=== PATIENT | female | born 1940 | race Caucasian/White ===

== ENCOUNTER 2016-10-10 14:20 | Inpatient (IN) | payer MEDICARE, OTHER ==
[2016-10-10] MEDS ORDERED: Haloperidol Lactate 5 MG/ML SDV IM PRN (17:08)
[2016-10-10] MEDS ORDERED: Lactated Ringers 500 ML IV ONE (17:15)
[2016-10-10] MEDS ORDERED: ABREVA TOP PRN (17:16)
--- NOTE | 2016-10-10 17:35 | EDM.PDOC ---
ED HPI GENERAL MEDICAL PROBLEM - General Chief Complaint: General Stated Complaint: needs transfer to [facility] Time Seen by Provider: 10/10/16 14:45 Source of Information: Reports: Family, Senior Living Records History Limitations: Reports: Altered Mental Status (severe dementia) - History of Present Illness INITIAL COMMENTS - FREE TEXT/NARRATIVE: Rupert is a 76 yo female who presents to the ER via [facility]. She is a resident at the [facility]. She was recently hospitalized at [facility] on the psychiatric floor from 09/28 - 10/07. She has severe dementia with aggressive behaviors. She had medication dose changes and upon discharge was doing well. assisted staff admit she has became aggressive again and hitting staff, resisting care and pulling other residents hair. assisted does not feel she can be taken care of at there facility. - Related Data Allergies Allergy/AdvReac Type Severity Reaction Status Date / Time Sulfa (Sulfonamide Allergy Cannot Verified 10/10/16 14:30 Antibiotics) Remember Home Meds: Home Meds Brinzolamide/Brimonidine Tart [Simbrinza 1%-0.2% Eye Drops] 1 drop EYEBOTH BID 02/26/16 [History] ClonazePAM [KlonoPIN] 0.5 mg PO BID PRN 02/26/16 [History] Latanoprost [Xalatan 0.005% Oph Soln] 1 drop EYEBOTH BEDTIME 02/26/16 [History ] Docosanol [Abreva 10%] 1 applic TOP Q4H PRN 10/10/16 [History] Lisinopril [Lisinopril] 20 mg PO DAILY 10/10/16 [History] Magnesium 500 mg PO DAILY 10/10/16 [History] Metoprolol Succinate [Metoprolol Succinate] 50 mg PO DAILY 10/10/16 [History] Naproxen 1,000 mg PO BID 10/10/16 [History] Omeprazole [Omeprazole] 20 mg PO DAILY 10/10/16 [History] PARoxetine HCl [Paxil] 10 mg PO DAILY 10/10/16 [History] PEG 400/Hypromellose/Glycerin [Artificial Tears Drops] 1 drop EYEBOTH BID [History] QUEtiapine Fumarate [Seroquel] 50 mg PO DAILY 10/10/16 [History] QUEtiapine [SEROquel] 25 mg PO DAILY 10/10/16 [History] QUEtiapine [SEROquel] 75 mg PO BEDTIME 10/10/16 [History] clonazePAM [Clonazepam] 0.25 mg PO BID 10/10/16 [History] Past Medical History HEENT History: Reports: Glaucoma Cardiovascular History: Reports: Hypertension Gastrointestinal History: Reports: Gastritis, GERD Neurological History: Reports: Alzheimers Disease Psychiatric History: Reports: Aggressive/Hostile Behaviors, Alzheimers Disease , Dementia - Past Surgical History GI Surgical History: Reports: EGD Social & Family History - Tobacco Use Smoking Status *Q: Never Smoker ED ROS GENERAL - Review of Systems Review Of Systems: Unable To Obtain ED EXAM, GENERAL - Physical Exam Exam: See Below Exam Limited By: No Limitations General Appearance: Alert, No Apparent Distress Ears: Normal External Exam, Normal Canal, Normal TMs Nose: Normal Inspection, No Blood Throat/Mouth: Normal Inspection, Normal Oropharynx, Normal Voice, No Airway Compromise Head: Atraumatic, Normocephalic Neck: Normal Inspection, Supple, Non-Tender Respiratory/Chest: No Respiratory Distress, Lungs Clear, No Accessory Muscle Use Cardiovascular: Regular Rate, Rhythm, No Murmur Extremities: Normal Inspection, No Pedal Edema, Normal Capillary Refill Neurological: Alert, No Motor/Sensory Deficits, Confused Psychiatric: Anxious. No: Depressed Mood, Flat Affect, Tearful Skin Exam: Warm, Dry, Intact, No Rash, Other (ashen) Course - Vital Signs Last Recorded V/S: Last Vital Signs Temp 97.0 F 10/10/16 16:23 Pulse 63 10/10/16 16:23 Resp 20 10/10/16 16:23 BP 114/58 L 10/10/16 14:25 Pulse Ox 99 10/10/16 16:23 - Orders/Labs/Meds Orders: Active Orders 24 hr Category Date Time Status CULTURE URINE [RM] Stat Lab 10/10/16 15:26 Received Medication Orders Acetaminophen (Tylenol) 650 mg PO Q4H PRN PRN Reason: Pain (Mild 1-3)/fever Artificial Tears (Liquitears 1.4% Ophth Soln) 0 ml EYEBOTH BID [facility] Ceftriaxone Sodium (Rocephin) 1 gm IVPUSH Q24H [facility] Docusate Sodium (Colace) 100 mg PO BID PRN PRN Reason: Constipation Enoxaparin Sodium (Lovenox) 40 mg SUBCUT Q24H [facility] Haloperidol Lactate (Haldol) 5 mg IM Q8H PRN PRN Reason: Agitation Lactated Ringer's (Ringers, Lactated) 500 mls @ 999 mls/hr IV ONETIME ONE Stop: 10/10/16 17:45 Lactated Ringer's (Ringers, Lactated) 1,000 mls @ 100 mls/hr IV ASDIRECTED [facility] Latanoprost (Xalatan 0.005% Ophth Soln) 0 ml EYEBOTH BEDTIME [facility] Lisinopril (Prinivil) 20 mg PO DAILY [facility] Magnesium Oxide (Magnesium Oxide) 500 mg PO DAILY [facility] Metoprolol Succinate (Toprol Xl) 50 mg PO DAILY [facility] Naproxen (Naprosyn) 1,000 mg PO BID [facility] Non-Formulary Medication (Brinzolamide/Brimonidine Tart [Simbrinza 1%-0.2% Eye Drops]) 1 drop EYEBOTH BID [facility] Ptom [Abreva 10%] 1 (Applic)) 1 applic TOP Q4H PRN PRN Reason: rash Non-Formulary Medication (Quetiapine Fumarate) 50 mg PO DAILY [facility] Pantoprazole Sodium (Protonix) 40 mg PO 0700 [facility] Paroxetine HCl (Paxil) 10 mg PO DAILY [facility] Quetiapine Fumarate (Seroquel) 25 mg PO DAILY [facility] Quetiapine Fumarate (Seroquel) 75 mg PO BEDTIME [facility] Labs: Laboratory Tests 10/10/16 10/10/16 10/10/16 Range/Units 15:01 15:01 15:26 WBC 10.2 H (5.0-10.0) 10^3/uL RBC 3.75 L (4.00-5.50) 10^6/uL Hgb 11.5 L (12.0-16.0) g/dL Hct 35.1 L (37.0-47.0) % MCV 93.6 (82.0-94.0) fL MCH 30.7 (27.0-32.0) pg MCHC 32.8 L (33.0-38.0) g/dL RDW Coeff of Denise 12.5 (11.0-15.0) % Plt Count 238 (150-400) 10^3/uL Neut % (Auto) 71.8 (35-85) % Lymph % (Auto) 11.8 (10-55) % [place] % (Auto) 9.0 (0-16) % Eos % (Auto) 7.1 H (0-5) % Baso % (Auto) 0.3 (0-3) % Neut # (Auto) 7.33 H (1.80-7.00) 10^3/uL Lymph # (Auto) 1.20 (1.00-4.80) 10^3/uL [place] # (Auto) 0.92 H (0.00-0.80) 10^3/uL Eos # (Auto) 0.73 H (0.00-0.45) 10^3/uL Baso # (Auto) 0.03 10^3/uL Sodium 141 (136-145) mEq/L Potassium 4.1 (3.5-5.0) mEq/L Chloride 105 (98-106) mEq/L Carbon Dioxide 25 (21-32) mmol/L BUN 42 H D (7-18) mg/dL Creatinine 1.4 H (0.6-1.0) mg/dL Est Cr Clr Drug Dosing 35.73 mL/min Estimated GFR (MDRD) 37 L (>=60) mL/min Glucose 112 H (75-99) mg/dL Calcium 8.6 (8.4-10.1) mg/dL Magnesium 1.5 L (1.8-2.4) mg/dL Total Bilirubin 0.7 (0.0-1.0) mg/dL AST 17 (15-37) U/L ALT 11 L (12-78) U/L Alkaline Phosphatase 91 (46-116) U/L Total Protein 6.7 (6.4-8.2) g/dL Albumin 3.4 (3.4-5.0) g/dL Urine Color Yellow (YELLOW) Urine Appearance Slightly cloudy (CLEAR) Urine pH 5.0 (4.5-8.0) Ur Specific [place] 1.021 H (1.003-1.020) Urine Protein Negative (NEGATIVE) mg/dL Urine Glucose (UA) Negative (NEGATIVE) mg/dL Urine Ketones Negative (NEGATIVE) mg/dL Urine Occult Blood Negative (NEGATIVE) Urine Nitrite Negative (NEGATIVE) Urine Bilirubin Negative (NEGATIVE) Urine Urobilinogen 1.0 (0.2-1.0) EU/dL Ur Leukocyte Esterase Small H (NEGATIVE) Urine RBC Not seen (0-5) /HPF Urine WBC 5-10 H (0-5) /HPF Urine WBC Clumps Occasional H (NOT SEEN) /HPF Ur Squamous Epith Cells Few H (NOT SEEN) /HPF Urine Bacteria Occasional H (NOT SEEN) /HPF Urine Opiates Screen (NEGATIVE) Ur Oxycodone Screen (NEGATIVE) Urine Methadone Screen (NEGATIVE) Ur Barbiturates Screen (NEGATIVE) U Tricyclic Antidepress (NEGATIVE) Ur Phencyclidine Scrn (NEGATIVE) Ur Amphetamine Screen (NEGATIVE) U Methamphetamines Scrn (NEGATIVE) Urine MDMA Screen (NEGATIVE) U Benzodiazepines Scrn (NEGATIVE) Urine Cocaine Screen (NEGATIVE) U Marijuana (THC) Screen (NEGATIVE) 10/10/16 Range/Units 15:26 WBC (5.0-10.0) 10^3/uL RBC (4.00-5.50) 10^6/uL Hgb (12.0-16.0) g/dL Hct (37.0-47.0) % MCV (82.0-94.0) fL MCH (27.0-32.0) pg MCHC (33.0-38.0) g/dL RDW Coeff of Denise (11.0-15.0) % Plt Count (150-400) 10^3/uL Neut % (Auto) (35-85) % Lymph % (Auto) (10-55) % [place] % (Auto) (0-16) % Eos % (Auto) (0-5) % Baso % (Auto) (0-3) % Neut # (Auto) (1.80-7.00) 10^3/uL Lymph # (Auto) (1.00-4.80) 10^3/uL [place] # (Auto) (0.00-0.80) 10^3/uL Eos # (Auto) (0.00-0.45) 10^3/uL Baso # (Auto) 10^3/uL Sodium (136-145) mEq/L Potassium (3.5-5.0) mEq/L Chloride (98-106) mEq/L Carbon Dioxide (21-32) mmol/L BUN (7-18) mg/dL Creatinine (0.6-1.0) mg/dL Est Cr Clr Drug Dosing mL/min Estimated GFR (MDRD) (>=60) mL/min Glucose (75-99) mg/dL Calcium (8.4-10.1) mg/dL Magnesium (1.8-2.4) mg/dL Total Bilirubin (0.0-1.0) mg/dL AST (15-37) U/L ALT (12-78) U/L Alkaline Phosphatase (46-116) U/L Total Protein (6.4-8.2) g/dL Albumin (3.4-5.0) g/dL Urine Color (YELLOW) Urine Appearance (CLEAR) Urine pH (4.5-8.0) Ur Specific [place] (1.003-1.020) Urine Protein (NEGATIVE) mg/dL Urine Glucose (UA) (NEGATIVE) mg/dL Urine Ketones (NEGATIVE) mg/dL Urine Occult Blood (NEGATIVE) Urine Nitrite (NEGATIVE) Urine Bilirubin (NEGATIVE) Urine Urobilinogen (0.2-1.0) EU/dL Ur Leukocyte Esterase (NEGATIVE) Urine RBC (0-5) /HPF Urine WBC (0-5) /HPF Urine WBC Clumps (NOT SEEN) /HPF Ur Squamous Epith Cells (NOT SEEN) /HPF Urine Bacteria (NOT SEEN) /HPF Urine Opiates Screen Negative (NEGATIVE) Ur Oxycodone Screen Negative (NEGATIVE) Urine Methadone Screen Negative (NEGATIVE) Ur Barbiturates Screen Negative (NEGATIVE) U Tricyclic Antidepress Negative (NEGATIVE) Ur Phencyclidine Scrn Negative (NEGATIVE) Ur Amphetamine Screen Negative (NEGATIVE) U Methamphetamines Scrn Negative (NEGATIVE) Urine MDMA Screen Negative (NEGATIVE) U Benzodiazepines Scrn Negative (NEGATIVE) Urine Cocaine Screen Negative (NEGATIVE) U Marijuana (THC) Screen Positive H (NEGATIVE) Meds: Medications Generic Name Dose Route Start Last Admin Trade Name Freq PRN Reason Stop Dose Admin Acetaminophen 650 mg 10/10/16 17:08 Tylenol PO Q4H PRN Pain (Mild 1-3)/fever Artificial Tears 0 ml 10/10/16 20:00 Liquitears 1.4% Ophth Soln EYEBOTH BID [facility] Ceftriaxone Sodium 1 gm 10/10/16 17:00 Rocephin IVPUSH Q24H [facility] Docusate Sodium 100 mg 10/10/16 17:08 Colace PO BID PRN Constipation Enoxaparin Sodium 40 mg 10/10/16 20:00 Lovenox SUBCUT Q24H [facility] Haloperidol Lactate 5 mg 10/10/16 17:08 Haldol IM Q8H PRN Agitation Lactated Ringer's 500 mls @ 999 mls/hr 10/10/16 17:15 Ringers, Lactated IV 10/10/16 17:45 ONETIME ONE Lactated Ringer's 1,000 mls @ 100 mls/hr 10/10/16 18:15 Ringers, Lactated IV ASDIRECTED [facility] Latanoprost 0 ml 10/10/16 20:00 Xalatan 0.005% Ophth Soln EYEBOTH BEDTIME [facility] Lisinopril 20 mg 10/11/16 08:00 Prinivil PO DAILY [facility] Magnesium Oxide 500 mg 10/11/16 08:00 Magnesium Oxide PO DAILY [facility] Metoprolol Succinate 50 mg 10/11/16 08:00 Toprol Xl PO DAILY [facility] Naproxen 1,000 mg 10/10/16 20:00 Naprosyn PO BID [facility] Non-Formulary Medication 1 drop 10/10/16 20:00 Brinzolamide/Brimonidine Tart [Simbrinza 1%-0.2% Eye Drops] EYEBOTH BID [facility] Ptom [Abreva 10%] 1 1 applic 10/10/16 17:16 Applic) TOP Q4H PRN rash Non-Formulary Medication 50 mg 10/11/16 08:00 Quetiapine Fumarate PO DAILY [facility] Pantoprazole Sodium 40 mg 10/11/16 07:00 Protonix PO 0700 [facility] Paroxetine HCl 10 mg 10/11/16 08:00 Paxil PO DAILY [facility] Quetiapine Fumarate 25 mg 10/11/16 08:00 Seroquel PO DAILY [facility] Quetiapine Fumarate 75 mg 10/10/16 20:00 Seroquel PO BEDTIME [facility] Departure - Departure Time of Disposition: 17:38 Disposition: Admitted As Inpatient 66 Clinical Impression: Dementia with aggressive behavior UTI (urinary tract infection) Qualifiers: Urinary tract infection type: site unspecified Hematuria presence: without hematuria Qualified Code(s): N39.0 - Urinary tract infection, site not specified - Discharge Information - Problem List & Annotations (1) Dementia with aggressive behavior SNOMED Code(s): 24154421, 96097921, 722780011 Code(s): F03.91 - UNSPECIFIED DEMENTIA WITH BEHAVIORAL DISTURBANCE Status: Acute Current Visit: Yes (2) UTI (urinary tract infection) SNOMED Code(s): 28192131 Code(s): N39.0 - URINARY TRACT INFECTION, SITE NOT SPECIFIED Status: Acute Current Visit: Yes Qualifiers: Urinary tract infection type: site unspecified Hematuria presence: without hematuria Qualified Code(s): N39.0 - Urinary tract infection, site not specified - Problem List Review Problem List Initiated/Reviewed/Updated: Yes - My Orders Last 24 Hours: My Active Orders 10/10/16 15:26 CULTURE URINE [RM] Stat - Assessment/Plan Admission H&P: Please use this note as an admission H&P Last 24 Hours: My Active Orders 10/10/16 15:26 CULTURE URINE [RM] Stat Plan: Laboratory work showed UTI which could be playing a factor to increase in aggressive behaviors. Will admit to Dr. Prescott's services under acute care. IV Rocephin initiated. Will give Haldol 5mg every 8 hours as needed for agitation and aggression. Discussed findings with family and they agree with admission at this time. She has had no aggressive behaviors while in the ER.
[2016-10-10] MEDS ORDERED: Lactated Ringers 1,000 ML IV SCH (18:15)
[2016-10-10] MEDS: cefTRIAXone 1 GM Vial IVPUSH SCH (18:42)
[2016-10-10] MEDS: Enoxaparin 40 MG/0.4 ML Syringe SUBCUT SCH (19:25)
[2016-10-10] MEDS: Docusate Sodium 100 MG Cap PO PRN (19:26)
[2016-10-10] MEDS: QUEtiapine 25 MG Tab PO SCH (19:26)
[2016-10-10] MEDS: Acetaminophen 325 MG Tab PO PRN (19:26)
[2016-10-10] MEDS: Naproxen 500 MG Tab PO SCH (19:26)
[2016-10-10] MEDS: Latanoprost 0.005% Ophth Soln 2.5 ML Bottle EYEBOTH SCH (19:34)
[2016-10-10] MEDS: Polyvinyl Alcohol 1.4% Ophth Soln 15 ML Bottle EYEBOTH SCH (19:43)
[2016-10-10] MEDS: Brimonidine 0.2% Ophth Soln 5 ML Bottle EYEBOTH SCH (19:43)
[2016-10-11] MEDS: Pantoprazole 40 MG Tab.CR PO SCH (06:32)
[2016-10-11] MEDS: Metoprolol Succinate 25 MG Tab.ER PO SCH (07:16)
[2016-10-11] MEDS: Naproxen 500 MG Tab PO SCH ×2 (07:16→19:47)
[2016-10-11] MEDS: QUEtiapine 100 MG Tab PO SCH (07:17)
[2016-10-11] MEDS: Lisinopril 20 MG Tab PO SCH (07:17)
[2016-10-11] MEDS: PARoxetine 20 MG Tab PO SCH (07:17)
[2016-10-11] MEDS: Brimonidine 0.2% Ophth Soln 5 ML Bottle EYEBOTH SCH ×2 (07:23→19:51)
[2016-10-11] MEDS: Polyvinyl Alcohol 1.4% Ophth Soln 15 ML Bottle EYEBOTH SCH ×2 (07:23→19:51)
--- NOTE | 2016-10-11 08:48 | PN ---
DATE: 10/11/2016 S: Rupert is a 76-year-old female who was seen in the emergency room yesterday and admitted to the hospital secondary to UTI. She is a resident at the [facility]; however, they declined to continue to take care of her secondary to aggressive behaviors with worsening dementia. She had been hitting staff and also pulling hair on other residents. They did not want her and sent her to another facility. She had been recently discharged from [facility] secondary to the above-mentioned behaviors. She was discharged on the . They had done some changes to her current medications. Yesterday, the custodial did try sending her to other psychiatric facilities; however, they would not without sending her to the emergency room first for medical clearance. It was noted that she did have a urinary tract infection, which we did elect to admit her to our hospital for IV antibiotics and some IV fluids. O: VITAL SIGNS: Blood pressure 121/56, O2 is 99% on room air, respiratory rate 18, pulse 67, with a temperature 96.7. GENERAL: Rupert is sitting comfortably in her bed this morning. She has had no aggressive behaviors at all with the staff. She is quite forgetful secondary to severe dementia. She does not appear to be in any distress. HEENT: Grossly unremarkable. LUNGS: Clear to auscultation. I do not hear any adventitious sounds. CARDIAC: Regular rate and rhythm. ABDOMEN: Soft. Bowel sounds are present and normoactive. No organomegaly, no guarding, and no rigidity is noted. EXTREMITIES: Scant pedal edema is noted bilaterally. ASSESSMENT: 1. LIKELY URINARY TRACT INFECTION. 2. ADVANCING DEMENTIA WITH AGGRESSIVE BEHAVIOR. P: We will stop her IV fluids at this point in time. We will continue with the Rocephin until we do get back culture reports in regard to urinary tract infection. We will continue to watch her. She has not showed any signs of any aggressive behaviors. We do have Haldol orders secondary to this just in case. Otherwise, we will just monitor her closely. MARCELA/NAS /[id number]
[2016-10-11] MEDS: QUEtiapine 25 MG Tab PO SCH ×2 (12:08→19:47)
[2016-10-11] MEDS: cefTRIAXone 1 GM Vial IVPUSH SCH (16:29)
[2016-10-11] MEDS: Acetaminophen 325 MG Tab PO PRN (19:46)
[2016-10-11] MEDS: Enoxaparin 40 MG/0.4 ML Syringe SUBCUT SCH (19:46)
[2016-10-11] MEDS: Docusate Sodium 100 MG Cap PO PRN (19:47)
[2016-10-11] MEDS: Latanoprost 0.005% Ophth Soln 2.5 ML Bottle EYEBOTH SCH (19:51)
[2016-10-12] MEDS: Pantoprazole 40 MG Tab.CR PO SCH (06:14)
[2016-10-12] MEDS: Naproxen 500 MG Tab PO SCH ×2 (07:12→19:33)
[2016-10-12] MEDS: PARoxetine 20 MG Tab PO SCH (07:12)
[2016-10-12] MEDS: QUEtiapine 100 MG Tab PO SCH (07:13)
[2016-10-12] MEDS: Lisinopril 20 MG Tab PO SCH (07:13)
[2016-10-12] MEDS: Metoprolol Succinate 25 MG Tab.ER PO SCH (07:14)
[2016-10-12] MEDS: Polyvinyl Alcohol 1.4% Ophth Soln 15 ML Bottle EYEBOTH SCH ×2 (07:15→19:37)
[2016-10-12] MEDS: Brimonidine 0.2% Ophth Soln 5 ML Bottle EYEBOTH SCH ×2 (07:16→19:37)
[2016-10-12] MEDS: QUEtiapine 25 MG Tab PO SCH ×2 (12:15→19:33)
--- NOTE | 2016-10-12 12:19 | PCM.PN ---
- General Info Date of Service: 10/12/16 Admission Dx/Problem (Free Text): UTI, confusion Functional Status: Reports: pain controlled - Review of Systems General: Reports: No Symptoms HEENT: Reports: no symptoms Pulmonary: Reports: no symptoms Cardiovascular: Reports: No Symptoms Gastrointestinal: Reports: No symptoms Genitourinary: Reports: no symptoms Musculoskeletal: Reports: no symptoms Skin: Reports: no symptoms Neurological: Reports: Confusion Psychiatric: Reports: confusion Systems Review Comment:: C&S growing gram neg and gram pos. Will start Cipro in addition to Rocephen. Patient sitting up in room talking with family member. Pleasantly confused. is ambulating regularly in the halls. VS stable, no distress noted. Will continue to monitor. - Patient Data Vitals - most recent: Last Vital Signs Temp 97.3 F 10/12/16 11:47 Pulse 74 10/12/16 11:47 Resp 18 10/12/16 11:47 BP 115/62 10/12/16 11:47 Pulse Ox 96 10/12/16 11:47 Weight - most recent: 169 lb I&O - last 24 hours: Intake & Output 10/11/16 10/12/16 10/12/16 22:59 06:59 14:59 Intake Total 580 450 660 Output Total 750 600 200 Balance -170 -150 460 Lab Results last 24 hrs: Laboratory Results - last 24 hr 10/12/16 10/12/16 Range/Units 07:15 07:15 WBC 7.2 (5.0-10.0) 10^3/uL RBC 3.65 L (4.00-5.50) 10^6/uL Hgb 11.1 L (12.0-16.0) g/dL Hct 34.6 L (37.0-47.0) % MCV 94.8 H (82.0-94.0) fL MCH 30.4 (27.0-32.0) pg MCHC 32.1 L (33.0-38.0) g/dL RDW Coeff of Denise 12.6 (11.0-15.0) % Plt Count 211 (150-400) 10^3/uL Neut % (Auto) 64.1 (35-85) % Lymph % (Auto) 18.4 (10-55) % [place] % (Auto) 8.0 (0-16) % Eos % (Auto) 9.1 H (0-5) % Baso % (Auto) 0.4 (0-3) % Neut # (Auto) 4.63 (1.80-7.00) 10^3/uL Lymph # (Auto) 1.33 (1.00-4.80) 10^3/uL [place] # (Auto) 0.58 (0.00-0.80) 10^3/uL Eos # (Auto) 0.66 H (0.00-0.45) 10^3/uL Baso # (Auto) 0.03 10^3/uL C-Reactive Protein 0.8 (0.2-0.8) mg/dL Med Orders - Current: Current Medications Acetaminophen (Tylenol) 650 mg PO Q4H PRN PRN Reason: Pain (Mild 1-3)/fever Last Admin: 10/11/16 19:46 Dose: 650 mg Artificial Tears (Liquitears 1.4% Ophth Soln) 0 ml EYEBOTH BID [facility] Last Admin: 10/12/16 07:15 Dose: 1 drop Brimonidine Tartrate (Alphagan 0.2% Ophth Soln) 0 ml EYEBOTH BID [facility] Last Admin: 10/12/16 07:16 Dose: 1 drop Ceftriaxone Sodium (Rocephin) 1 gm IVPUSH Q24H [facility] Last Admin: 10/11/16 16:29 Dose: 1 gm Ciprofloxacin (Ciprofloxacin Hcl) 500 mg PO BID [facility] Stop: 10/19/16 21:00 Docusate Sodium (Colace) 100 mg PO BID PRN PRN Reason: Constipation Last Admin: 10/11/16 19:47 Dose: 100 mg Enoxaparin Sodium (Lovenox) 40 mg SUBCUT Q24H [facility] Last Admin: 10/11/16 19:46 Dose: 40 mg Haloperidol Lactate (Haldol) 5 mg IM Q8H PRN PRN Reason: Agitation Last Admin: 10/10/16 19:22 Dose: 5 mg Latanoprost (Xalatan 0.005% Ophth Soln) 0 ml EYEBOTH BEDTIME [facility] Last Admin: 10/11/16 19:51 Dose: 1 drop Lisinopril (Prinivil) 20 mg PO DAILY [facility] Last Admin: 10/12/16 07:13 Dose: 20 mg Magnesium Oxide (Magnesium Oxide) 500 mg PO DAILY [facility] Last Admin: 10/12/16 07:07 Dose: 500 mg Metoprolol Succinate (Toprol Xl) 50 mg PO DAILY [facility] Last Admin: 10/12/16 07:14 Dose: 50 mg Naproxen (Naprosyn) 1,000 mg PO BID [facility] Last Admin: 10/12/16 07:12 Dose: 1,000 mg Ptom [Abreva 10%] 1 (Applic)) 1 applic TOP Q4H PRN PRN Reason: rash Pantoprazole Sodium (Protonix) 40 mg PO 0700 [facility] Last Admin: 10/12/16 06:14 Dose: 40 mg Paroxetine HCl (Paxil) 10 mg PO DAILY [facility] Last Admin: 10/12/16 07:12 Dose: 10 mg Quetiapine Fumarate (Seroquel) 50 mg PO DAILY [facility] Last Admin: 10/12/16 07:13 Dose: 50 mg Quetiapine Fumarate (Seroquel) 25 mg PO 1300 [facility] Last Admin: 10/11/16 12:08 Dose: 25 mg Quetiapine Fumarate (Seroquel) 75 mg PO BEDTIME [facility] Last Admin: 10/11/16 19:47 Dose: 75 mg Discontinued Medications Lactated Ringer's (Ringers, Lactated) 500 mls @ 999 mls/hr IV ONETIME ONE Stop: 10/10/16 17:45 Last Admin: 10/10/16 18:43 Dose: 999 mls/hr Lactated Ringer's (Ringers, Lactated) 1,000 mls @ 100 mls/hr IV ASDIRECTED [facility] Last Admin: 10/10/16 22:51 Dose: 100 mls/hr - Problem List Review Problem List Initiated/Reviewed/Updated: Yes - My Orders Last 24 Hours: My Active Orders 10/12/16 20:00 Ciprofloxacin [Ciprofloxacin HCl] 500 mg PO BID
[2016-10-12] MEDS: cefTRIAXone 1 GM Vial IVPUSH SCH (16:04)
[2016-10-12] MEDS: Docusate Sodium 100 MG Cap PO PRN (19:33)
[2016-10-12] MEDS: Acetaminophen 325 MG Tab PO PRN (19:33)
[2016-10-12] MEDS: Ciprofloxacin 500 MG Tab PO SCH (19:33)
[2016-10-12] MEDS: Enoxaparin 40 MG/0.4 ML Syringe SUBCUT SCH (19:33)
[2016-10-12] MEDS: Latanoprost 0.005% Ophth Soln 2.5 ML Bottle EYEBOTH SCH (19:37)
[2016-10-13] MEDS: Pantoprazole 40 MG Tab.CR PO SCH (06:49)
[2016-10-13] MEDS: Brimonidine 0.2% Ophth Soln 5 ML Bottle EYEBOTH SCH (07:28)
[2016-10-13] MEDS: Polyvinyl Alcohol 1.4% Ophth Soln 15 ML Bottle EYEBOTH SCH (07:29)
[2016-10-13] MEDS: Ciprofloxacin 500 MG Tab PO SCH (07:31)
[2016-10-13] MEDS: Naproxen 500 MG Tab PO SCH (07:31)
[2016-10-13] MEDS: PARoxetine 20 MG Tab PO SCH (07:32)
[2016-10-13] MEDS: QUEtiapine 100 MG Tab PO SCH (07:32)
[2016-10-13] MEDS: Lisinopril 20 MG Tab PO SCH (07:35)
[2016-10-13] MEDS: Metoprolol Succinate 25 MG Tab.ER PO SCH (07:35)
[2016-10-13] MEDS: QUEtiapine 25 MG Tab PO SCH (12:20)
--- NOTE | 2016-10-13 13:41 | PCM.DCSUM1 ---
Discharge Summary - Hospital Course Free Text/Narrative:: admitted to the ER for treatment of UTI after she became aggressive at a local detention. She has been treated for her UTI, and will continue on Cipro upon her return to the detention. Although she is pleasantly confused, she has not displayed any signs of aggression since admission. - Discharge Data Discharge Date: 10/13/16 Discharge Disposition: Home, Self-Care 01 Condition: Good - Patient Instructions Diet: Regular Diet as Tolerated Driving: Do Not Drive - Discharge Plan Home Medications: Home Meds Brinzolamide/Brimonidine Tart [Simbrinza 1%-0.2% Eye Drops] 1 drop EYEBOTH BID 02/26/16 [History] ClonazePAM [KlonoPIN] 0.5 mg PO BID PRN 02/26/16 [History] Latanoprost [Xalatan 0.005% Ophth Soln] 1 drop EYEBOTH BEDTIME 02/26/16 [History ] Docosanol [Abreva 10%] 1 applic TOP Q4H PRN 10/10/16 [History] Lisinopril [Lisinopril] 20 mg PO DAILY 10/10/16 [History] Magnesium 500 mg PO DAILY 10/10/16 [History] Metoprolol Succinate [Metoprolol Succinate] 50 mg PO DAILY 10/10/16 [History] Naproxen 1,000 mg PO BID 10/10/16 [History] Omeprazole [Omeprazole] 20 mg PO DAILY 10/10/16 [History] PARoxetine HCl [Paxil] 10 mg PO DAILY 10/10/16 [History] PEG 400/Hypromellose/Glycerin [Artificial Tears Drops] 1 drop EYEBOTH BID [History] QUEtiapine Fumarate [Seroquel] 50 mg PO 0800 10/10/16 [History] QUEtiapine [SEROquel] 25 mg PO 1300 10/10/16 [History] QUEtiapine [SEROquel] 75 mg PO BEDTIME 10/10/16 [History] clonazePAM [Clonazepam] 0.25 mg PO BID 10/10/16 [History] Forms: ED Department Discharge Referrals: Scott Prescott MD [Primary Care Provider] - - Discharge Summary/Plan Comment Discharge Summary/Plan Comment: Will send home on Cipro 500mg po bid x 6 more days. - Patient Data Vitals - Most Recent: Last Vital Signs Temp 97.6 F 10/13/16 08:00 Pulse 70 10/13/16 08:00 Resp 20 10/13/16 08:00 BP 133/81 10/13/16 08:00 Pulse Ox 98 10/13/16 08:00 Weight - Most Recent: 169 lb I&O - Last 24 hours: Intake & Output 10/12/16 10/13/16 10/13/16 22:59 06:59 14:59 Intake Total 700 300 Output Total 1100 500 Balance -400 -200 Med Orders - Current: Current Medications Acetaminophen (Tylenol) 650 mg PO Q4H PRN PRN Reason: Pain (Mild 1-3)/fever Last Admin: 10/12/16 19:33 Dose: 650 mg Artificial Tears (Liquitears 1.4% Ophth Soln) 0 ml EYEBOTH BID [facility] Last Admin: 10/13/16 07:29 Dose: 1 drop Brimonidine Tartrate (Alphagan 0.2% Ophth Soln) 0 ml EYEBOTH BID [facility] Last Admin: 10/13/16 07:28 Dose: 1 drop Ceftriaxone Sodium (Rocephin) 1 gm IVPUSH Q24H [facility] Last Admin: 10/12/16 16:04 Dose: 1 gm Ciprofloxacin (Ciprofloxacin Hcl) 500 mg PO BID [facility] Stop: 10/19/16 21:00 Last Admin: 10/13/16 07:31 Dose: 500 mg Docusate Sodium (Colace) 100 mg PO BID PRN PRN Reason: Constipation Last Admin: 10/12/16 19:33 Dose: 100 mg Enoxaparin Sodium (Lovenox) 40 mg SUBCUT Q24H [facility] Last Admin: 10/12/16 19:33 Dose: 40 mg Haloperidol Lactate (Haldol) 5 mg IM Q8H PRN PRN Reason: Agitation Last Admin: 10/10/16 19:22 Dose: 5 mg Latanoprost (Xalatan 0.005% Ophth Soln) 0 ml EYEBOTH BEDTIME [facility] Last Admin: 10/12/16 19:37 Dose: 1 drop Lisinopril (Prinivil) 20 mg PO DAILY [facility] Last Admin: 10/13/16 07:35 Dose: 20 mg Magnesium Oxide (Magnesium Oxide) 500 mg PO DAILY [facility] Last Admin: 10/13/16 07:31 Dose: 500 mg Metoprolol Succinate (Toprol Xl) 50 mg PO DAILY [facility] Last Admin: 10/13/16 07:35 Dose: 50 mg Naproxen (Naprosyn) 1,000 mg PO BID [facility] Last Admin: 10/13/16 07:31 Dose: 1,000 mg Ptom [Abreva 10%] 1 (Applic)) 1 applic TOP Q4H PRN PRN Reason: rash Pantoprazole Sodium (Protonix) 40 mg PO 0700 [facility] Last Admin: 10/13/16 06:49 Dose: 40 mg Paroxetine HCl (Paxil) 10 mg PO DAILY [facility] Last Admin: 10/13/16 07:32 Dose: 10 mg Quetiapine Fumarate (Seroquel) 50 mg PO DAILY [facility] Last Admin: 10/13/16 07:32 Dose: 50 mg Quetiapine Fumarate (Seroquel) 25 mg PO 1300 [facility] Last Admin: 10/13/16 12:20 Dose: 25 mg Quetiapine Fumarate (Seroquel) 75 mg PO BEDTIME [facility] Last Admin: 10/12/16 19:33 Dose: 75 mg Discontinued Medications Lactated Ringer's (Ringers, Lactated) 500 mls @ 999 mls/hr IV ONETIME ONE Stop: 10/10/16 17:45 Last Admin: 10/10/16 18:43 Dose: 999 mls/hr Lactated Ringer's (Ringers, Lactated) 1,000 mls @ 100 mls/hr IV ASDIRECTED [facility] Last Admin: 10/10/16 22:51 Dose: 100 mls/hr *Q Meaningful Use (DIS) - VTE *Q VTE Criteria *Q: - Stroke *Q Stroke Criteria *Q: - AMI *Q AMI Criteria *Q:
[2016-10-13 13:52] VITALS: BP 133/62
[2016-10-13] MEDS ORDERED: Take Home: Ciprofloxacin 500 MG Tab, 2 Tab Pack PO ONE (13:53)
[2016-10-13] MEDS ORDERED: Ciprofloxacin 500 MG Tab PO ONE (14:29)
== END 2016-10-13 14:30 | disposition home or self-care (01) | DRG 57 ==
LOC: CC.ED 14:20 → CC.MS 16:18
PROVIDERS: ADMIT Physician Assistant Medical; ATTEND Family Medicine
DX: G30.9 Alzheimer's disease, unspecified (principal); F02.81 Dementia in other diseases classified elsewhere, unspecified severity, with behavioral disturbance; N39.0 Urinary tract infection, site not specified; I10 Essential (primary) hypertension; K21.9 Gastro-esophageal reflux disease without esophagitis; Z88.8 Allergy status to other drugs, medicaments and biological substances; Z79.899 Other long term (current) drug therapy
CPT/HCPCS: 36415; 80053; 80305; 81001; 83735; 85025; 86140; 87086; 99284; A9270-GY; J0696; J1630; J1650; J7120

== ENCOUNTER 2017-02-10 22:16 | Observation (INO) | payer MEDICARE, MEDICAID ==
[2017-02-10] MEDS ORDERED: LORazepam 2 MG/ML Syringe IVPUSH ONE (23:23)
[2017-02-10] MEDS ORDERED: Lactated Ringers 1,000 ML IV SCH (23:45)
[2017-02-11] MEDS ORDERED: Haloperidol Lactate 5 MG/ML SDV IVPUSH PRN (00:01)
[2017-02-11] MEDS ORDERED: Bisacodyl 10 MG Supp RECTAL PRN (00:01)
[2017-02-11] MEDS ORDERED: Magnesium Hydroxide 400 MG/5 ML Susp 30 ML Cup PO PRN (00:01)
[2017-02-11] MEDS ORDERED: Promethazine 25 MG Supp RECTAL PRN (00:01)
--- NOTE | 2017-02-11 00:06 | EDM.PDOC ---
ED HPI GENERAL MEDICAL PROBLEM - General Chief Complaint: Neurological Problem Stated Complaint: hallucinations Time Seen by Provider: 02/10/17 22:51 Source of Information: Reports: EMS Notes Reviewed, Family (), RN Notes Reviewed History Limitations: Reports: Altered Mental Status - History of Present Illness INITIAL COMMENTS - FREE TEXT/NARRATIVE: Rupert is a 76 yo female who presents to the ER via [facility] with concerns of hallucinations. Rupert has a known history of severe dementia but has recently became restless and hallucinating. Her husban (Mt) is present and states he has never seen her like this before. He admits he is with her every evening and stays with her till she falls asleep. Today she became more restless and started hallucinating. He states she hasn't ate much in the last 3 weeks and isn't drinking much for fluids either. He is requesting we give her something to help her rest. - Related Data Allergies Allergy/AdvReac Type Severity Reaction Status Date / Time Sulfa (Sulfonamide Allergy Cannot Verified 02/10/17 22:51 Antibiotics) Remember Home Meds: Home Meds Brinzolamide/Brimonidine Tart [Simbrinza 1%-0.2% Eye Drops] 1 drop EYEBOTH BID 02/26/16 [History] PEG 400/Hypromellose/Glycerin [Artificial Tears Drops] 1 drop EYEBOTH BID [History] clonazePAM [Clonazepam] 0.25 mg PO BID 10/10/16 [History] Acetaminophen 650 mg PO Q4H PRN 02/10/17 [History] Acetaminophen [Tylenol] 650 mg PO TID 02/10/17 [History] Bisacodyl [Dulcolax] 10 mg RECTAL Q24H PRN 02/10/17 [History] Magnesium Hydroxide [Milk of Magnesia] 30 ml PO Q24H PRN 02/10/17 [History] Metoclopramide [Reglan] 5 mg PO TID 02/10/17 [History] Omeprazole Magnesium [Prilosec Otc] 20 mg PO DAILY 02/10/17 [History] Promethazine HCl [Phenergan] 1 ml IM Q4H PRN 02/10/17 [History] Promethazine HCl [Phenergan] 25 mg RECTAL Q4H PRN 02/10/17 [History] Promethazine [Phenergan] 25 mg PO Q4H PRN 02/10/17 [History] Past Medical History HEENT History: Reports: Glaucoma Cardiovascular History: Reports: Hypertension Gastrointestinal History: Reports: Gastritis, GERD Neurological History: Reports: Alzheimers Disease Psychiatric History: Reports: Aggressive/Hostile Behaviors, Alzheimers Disease , Dementia - Past Surgical History GI Surgical History: Reports: EGD Social & Family History - Tobacco Use Smoking Status *Q: Never Smoker ED ROS GENERAL - Review of Systems Review Of Systems: Unable To Obtain ED EXAM, GENERAL - Physical Exam Exam: See Below General Appearance: Anxious, Cachetic Eye Exam: Left Eye: Conjunctival Injection Ears: Normal External Exam, Normal TMs Nose: Normal Inspection, No Blood Throat/Mouth: Normal Voice, No Airway Compromise, Other (dry oral mucosa) Head: Atraumatic, Normocephalic Neck: Normal Inspection, Supple Respiratory/Chest: No Respiratory Distress, Lungs Clear, Normal Breath Sounds Cardiovascular: Regular Rate, Rhythm, No Edema GI/Abdominal: Normal Bowel Sounds, Soft, Non-Tender, No Distention Extremities: Normal Inspection, No Pedal Edema Neurological: Inattentive, Confused, Memory Loss Recent Events Psychiatric: Anxious Skin Exam: Warm, Dry, Intact, Pallor Course - Vital Signs Last Recorded V/S: Last Vital Signs Temp 96.8 F 02/10/17 22:16 Pulse 79 02/10/17 22:16 Resp 16 02/10/17 22:16 BP 127/78 02/10/17 22:16 Pulse Ox 91 L 02/10/17 22:16 - Orders/Labs/Meds Orders: Active Orders 24 hr Category Date Time Status UA W/MICROSCOPIC [URIN] Stat Lab 02/10/17 22:30 Uncollected Lactated Ringers [Ringers, Lactated] 1,000 ml Med 02/10/17 23:45 Active IV ASDIRECTED Medication Orders Lactated Ringer's (Ringers, Lactated) 1,000 mls @ 75 mls/hr IV ASDIRECTED BENNETT Last Admin: 02/10/17 23:38 Dose: 75 mls/hr Labs: Laboratory Tests 02/10/17 02/10/17 Range/Units 22:45 22:45 WBC 8.5 (5.0-10.0) 10^3/uL RBC 3.70 L (4.00-5.50) 10^6/uL Hgb 11.7 L (12.0-16.0) g/dL Hct 34.2 L (37.0-47.0) % MCV 92.4 (82.0-94.0) fL MCH 31.6 (27.0-32.0) pg MCHC 34.2 (33.0-38.0) g/dL RDW Coeff of Denise 12.5 (11.0-15.0) % Plt Count 352 (150-400) 10^3/uL Neut % (Auto) 68.3 (35-85) % Lymph % (Auto) 18.3 (10-55) % Warrick % (Auto) 12.0 (0-16) % Eos % (Auto) 1.2 (0-5) % Baso % (Auto) 0.2 (0-3) % Neut # (Auto) 5.82 (1.80-7.00) 10^3/uL Lymph # (Auto) 1.56 (1.00-4.80) 10^3/uL Warrick # (Auto) 1.02 H (0.00-0.80) 10^3/uL Eos # (Auto) 0.10 (0.00-0.45) 10^3/uL Baso # (Auto) 0.02 10^3/uL Sodium 139 (136-145) mEq/L Potassium 3.4 L (3.5-5.0) mEq/L Chloride 101 (98-106) mEq/L Carbon Dioxide 28 (21-32) mmol/L BUN 35 H (7-18) mg/dL Creatinine 1.1 H (0.6-1.0) mg/dL Est Cr Clr Drug Dosing 39.15 mL/min Estimated GFR (MDRD) 48 L (>=60) mL/min Glucose 130 H (75-99) mg/dL Calcium 9.7 (8.4-10.1) mg/dL Meds: Medications Generic Name Dose Route Start Last Admin Trade Name Freq PRN Reason Stop Dose Admin Lactated Ringer's 1,000 mls @ 75 mls/hr 02/10/17 23:45 02/10/17 23:38 Ringers, Lactated IV 75 mls/hr ASDIRECTED BENNETT Administration Discontinued Medications Generic Name Dose Route Start Last Admin Trade Name Freq PRN Reason Stop Dose Admin Lorazepam 1 mg 02/10/17 23:23 02/10/17 23:38 Ativan IVPUSH 02/10/17 23:24 1 mg ONETIME ONE Administration Departure - Departure Time of Disposition: 00:09 Disposition: Refer to Observation Clinical Impression: Dehydration Dementia Qualifiers: Dementia type: unspecified type Dementia behavioral disturbance: with behavioral disturbance Qualified Code(s): F03.91 - Unspecified dementia with behavioral disturbance - Discharge Information - Problem List & Annotations (1) Dehydration SNOMED Code(s): 94618203 Code(s): E86.0 - DEHYDRATION Status: Acute Current Visit: Yes (2) Dementia SNOMED Code(s): 95211721 Code(s): F03.90 - UNSPECIFIED DEMENTIA WITHOUT BEHAVIORAL DISTURBANCE Status: Acute Current Visit: Yes Qualifiers: Dementia type: unspecified type Dementia behavioral disturbance: with behavioral disturbance Qualified Code(s): F03.91 - Unspecified dementia with behavioral disturbance - Problem List Review Problem List Initiated/Reviewed/Updated: Yes - My Orders Last 24 Hours: My Active Orders 02/10/17 22:30 UA W/MICROSCOPIC [URIN] Stat 02/10/17 23:45 Lactated Ringers [Ringers, Lactated] 1,000 ml IV ASDIRECTED - Assessment/Plan Admission H&P: Please use this note as an admission H&P Last 24 Hours: My Active Orders 02/10/17 22:30 UA W/MICROSCOPIC [URIN] Stat 02/10/17 23:45 Lactated Ringers [Ringers, Lactated] 1,000 ml IV ASDIRECTED Plan: Long discussion with Mt (patient's ) about his current wishes in regards to Rupert's care. He wishes to proceed with IV fluids and medications to help with anxiety, hallucinations and rest. Urinalysis is to be collected. He would like to proceed with antibiotic therapy if needed. Discussed comfort cares into detail with Mt. Will admit to Dr. Prescott's services under observation care.
[2017-02-11] MEDS ORDERED: Pantoprazole 40 MG Tab.CR PO SCH (07:00)
[2017-02-11] MEDS ORDERED: EYE EYEBOTH SCH (08:00)
[2017-02-11] MEDS ORDERED: SIMBRINZA EYEBOTH SCH (08:00)
[2017-02-11] MEDS ORDERED: cefTRIAXone 1 GM Vial IVPUSH SCH (08:00)
[2017-02-11] MEDS ORDERED: Acetaminophen 325 MG Tab PO SCH (08:00)
[2017-02-11] MEDS ORDERED: Metoclopramide 10 MG Tab PO SCH (08:00)
[2017-02-11] MEDS ORDERED: Gentamicin 0.3% Ophth Soln 5 ML Bottle EYELF SCH (08:00)
[2017-02-11] MEDS ORDERED: Polyvinyl Alcohol 1.4% Ophth Soln 15 ML Bottle EYEBOTH SCH (08:00)
[2017-02-11 10:11] VITALS: BP 126/70
--- NOTE | 2017-02-11 20:08 | PCM.DCSUM1 ---
Discharge Summary - Hospital Course Free Text/Narrative:: Patient presented to ED last evening with increased confusion/hallucinations. Does have a history of severe dementia but staff at the [facility] felt she was more restless, irritated and was hallucinating more than her usual. states he spends every evening with her and had never seen her this bad. She has not been eating well for the last 3 weeks, he was concerned that she could have a UTI as that has caused increased confusion in the past. She is on comfort cares only at the [facility], DNR status. Initial labs in the ED were negative. Unable to obtain urine. Admitted for IV fluids. - Discharge Data Discharge Date: 02/11/17 Discharge Disposition: DC[facility] to [facility] [place] 63 Condition: Poor - Patient Summary/Data Complications: none Hospital Course: Patient remained confused during stay. Does not follow commands. Urine does this am did show occasional bacteria, small amount of leukocytes but also does show epithelial cells and concerns noted that may not be a clean catch per nursing. Did cover her with Rocephin 1 gm until culture results obtained. Haldol given as needed for increased behaviors. - Patient Instructions Diet: Usual Diet as Tolerated Activity: As Tolerated Other/Special Instructions: Did culture urine today. Patient given Rocephin 1 gm here to cover as urine did show occasional bacteria but also epithelial cells so may be contaminated specimen. Will await full culture report to determine if any further antibiotics needed. - Discharge Plan Prescriptions/Med Rec: ClonazePAM [KlonoPIN] 0.5 mg PO TID #90 tablet Haloperidol [Haldol] 1 mg PO Q4H PRN #60 tablet PRN Reason: Anxiety Home Medications: Home Meds Brinzolamide/Brimonidine Tart [Simbrinza 1%-0.2% Eye Drops] 1 drop EYEBOTH BID 02/26/16 [History] PEG 400/Hypromellose/Glycerin [Artificial Tears Drops] 1 drop EYEBOTH BID [History] Acetaminophen 650 mg PO Q4H PRN 02/10/17 [History] Acetaminophen [Tylenol] 650 mg PO TID 02/10/17 [History] Bisacodyl [Dulcolax] 10 mg RECTAL Q24H PRN 02/10/17 [History] Magnesium Hydroxide [Milk of Magnesia] 30 ml PO Q24H PRN 02/10/17 [History] Metoclopramide [Reglan] 5 mg PO TID 02/10/17 [History] Omeprazole Magnesium [Prilosec Otc] 20 mg PO DAILY 02/10/17 [History] Promethazine HCl [Phenergan] 1 ml IM Q4H PRN 02/10/17 [History] Promethazine HCl [Phenergan] 25 mg RECTAL Q4H PRN 02/10/17 [History] Promethazine [Phenergan] 25 mg PO Q4H PRN 02/10/17 [History] ClonazePAM [KlonoPIN] 0.5 mg PO TID #90 tablet 02/11/17 [Rx] Haloperidol [Haldol] 1 mg PO Q4H PRN #60 tablet 02/11/17 [Rx] Forms: ED Department Discharge - General Info Date of Service: 02/11/17 Admission Dx/Problem (Free Text: Dementia with increased agitation Functional Status: Denies: Tolerating Diet - Review of Systems General: Reports: Other (ROS unobtainable) - Patient Data Vitals - Most Recent: Last Vital Signs Temp 97.5 F 02/11/17 08:00 Pulse 71 02/11/17 08:00 Resp 16 02/11/17 08:00 BP 126/70 02/11/17 08:00 Pulse Ox 100 02/11/17 08:00 Weight - Most Recent: 119 lb 14.4 oz Lab Results - Last 24 hrs: Laboratory Results - last 24 hr 02/11/17 Range/Units 07:40 Urine Color Dark yellow (YELLOW) Urine Appearance Slightly cloudy (CLEAR) Urine pH 5.5 (4.5-8.0) Ur Specific Dewitt 1.020 (1.003-1.020) Urine Protein 30 H (NEGATIVE) mg/dL Urine Glucose (UA) Negative (NEGATIVE) mg/dL Urine Ketones 15 H (NEGATIVE) mg/dL Urine Occult Blood Negative (NEGATIVE) Urine Nitrite Negative (NEGATIVE) Urine Bilirubin Small H (NEGATIVE) Urine Urobilinogen 1.0 (0.2-1.0) EU/dL Ur Leukocyte Esterase Trace H (NEGATIVE) Urine RBC Not seen (0-5) /HPF Urine WBC 0-5 (0-5) /HPF Ur Squamous Epith Cells Few H (NOT SEEN) /HPF Calcium Oxalate Crystal Few H (NOT SEEN) /HPF Urine Bacteria Occasional H (NOT SEEN) /HPF Hyaline Casts Few H (NOT SEEN) /LPF Urine Mucus Moderate H (NOT SEEN) /HPF Med Orders - Current: Current Medications Discontinued Medications Acetaminophen (Tylenol) 650 mg PO TID [facility] [place] Last Admin: 02/11/17 08:13 Dose: 650 mg Artificial Tears (Liquitears 1.4% Ophth Soln) 0 ml EYEBOTH BID [facility] [place] Last Admin: 02/11/17 08:14 Dose: 1 drop Bisacodyl (Dulcolax) 10 mg RECTAL Q24H PRN PRN Reason: Constipation Ceftriaxone Sodium (Rocephin) 1 gm IVPUSH Q24H [facility] [place] Last Admin: 02/11/17 09:00 Dose: 1 gm Gentamicin Sulfate (Garamycin 0.3% Ophth Soln) 0 ml EYELF QID [facility] Last Admin: 02/11/17 08:13 Dose: 2 drop Haloperidol Lactate (Haldol) 2.5 mg IVPUSH Q8H PRN PRN Reason: Agitation Last Admin: 02/11/17 06:43 Dose: 2.5 mg Lactated Ringer's (Ringers, Lactated) 1,000 mls @ 75 mls/hr IV ASDIRECTED [facility] [place] Last Admin: 02/10/17 23:38 Dose: 75 mls/hr Lorazepam (Ativan) 1 mg IVPUSH ONETIME ONE Stop: 02/10/17 23:24 Last Admin: 02/10/17 23:38 Dose: 1 mg Magnesium Hydroxide (Milk Of Magnesia) 30 ml PO Q24H PRN PRN Reason: Constipation Metoclopramide HCl (Reglan) 5 mg PO TID [facility] [place] Last Admin: 02/11/17 08:13 Dose: 5 mg Ptom [Simbrinza 1%-0 (.2% Eye Drop) 1 drop EYEBOTH BID [facility] [place] Last Admin: 02/11/17 09:22 Dose: Not Given Pantoprazole Sodium (Protonix) 40 mg PO DAILY@0700 [facility] [place] Last Admin: 02/11/17 08:13 Dose: 40 mg Promethazine HCl (Phenadoz) 25 mg RECTAL Q4H PRN PRN Reason: Nausea - Exam General: Reports: Alert. Denies: Oriented Neck: Reports: Supple Lungs: Reports: Clear to Auscultation, Normal Respiratory Effort Cardiovascular: Reports: Regular Rate, Regular Rhythm GI/Abdominal Exam: Normal Bowel Sounds, Soft, Non-Tender Extremities: No Pedal Edema Skin: Reports: Warm, Dry *Q Meaningful Use (DIS) - VTE *Q VTE Criteria *Q: - Stroke *Q Stroke Criteria *Q: - AMI *Q AMI Criteria *Q:
== END 2017-02-11 10:40 ==
LOC: CC.ED 22:16 → CC.MS 23:34 → UNDOADMOB 23:34 → CC.MS 02-11 00:01
PROVIDERS: ADMIT Physician Assistant Medical; ATTEND Family Medicine
DX: F03.91 Unspecified dementia, unspecified severity, with behavioral disturbance (principal); E86.0 Dehydration; I10 Essential (primary) hypertension; K21.9 Gastro-esophageal reflux disease without esophagitis; G30.9 Alzheimer's disease, unspecified; F02.80 Dementia in other diseases classified elsewhere, unspecified severity, without behavioral disturbance, psychotic disturbance, mood disturbance, and anxiety; Z88.2 Allergy status to sulfonamides; Z79.899 Other long term (current) drug therapy; Z98.890 Other specified postprocedural states
CPT/HCPCS: 36415; 80048; 81001; 85025; 87086; 96374; 96375; 99285; A9270; J0696; J1630; J2060; J7120; 99236; G0378